=== PATIENT | female | born 1980 | race Caucasian/White ===

== ENCOUNTER 2019-01-21 16:03 | Emergency (ER) | payer OTHER ==
[2019-01-21] MEDS ORDERED: 0.9 % SODIUM CHLORIDE 1,000 ML BAG IV ONE (16:21)
[2019-01-21] MEDS ORDERED: ONDANSETRON HCL IV 4 MG/2 ML VIAL IVP ONE (16:21)
--- NOTE | 2019-01-21 16:28 | Emergency Department Record ---
History of Present Illness - General Chief Complaint: Dizziness Stated Complaint: DIZZY Time Seen by Provider: 01/21/19 16:17 Source: Patient Mode of Arrival: Ambulatory Limitations: No limitations - History of Present Illness Initial Comments: The patient is here due to a 15 hour hx of lightheadedness. She states she was at work this early AM and suddenly began having waves of weakness, lightheadedness and nausea. The severe symptoms last minutes and then if she is able to lay back she feels better. The waves seem to be coming on every 30-45 minutes. She denies any hx of the same and any hx of any recent illness. Specifically she has had no fever, BENTLEY, CP, SOB, AP, dysuria, vomiting or diarrhea. The patient did drive herself here to the ER without difficulty. MD Complaint: Lightheadedness Onset/Timin -: Hour(s) Description: Lightheadedness, Nausea, Sense of movement (mildly.) History of Same: No History of Trauma: No Improves With: Nothing Worsens With: Nothing Associated Symptoms: Denies other symptoms - Roel Coma Scale Eye Response: (4) Open spontaneously Motor Response: (6) Obeys commands Verbal Response: (5) Oriented [place] Total: 15 - Related Data Allergies Allergy/AdvReac Type Severity Reaction Status Date / Time codeine Allergy "childhood" Verified 01/21/19 16:30 Travel Screening - Travel/Exposure Within Last 30 Days Have you traveled within the last 30 days?: No Review of Systems Constitutional: Reports: Malaise. Denies: Chills, Fever Eyes: Denies: Eye discharge ENT: Denies: Congestion Respiratory: Denies: Cough, Dyspnea Cardiovascular: Denies: Chest pain, Dyspnea on exertion Endocrine: Reports: Fatigue Gastrointestinal: Reports: Nausea Genitourinary: Denies: Dysuria Musculoskeletal: Denies: Arthralgia Skin: Denies: Bruising Past Medical History - SOCIAL HISTORY Smoking Status: Never smoker Alcohol Use: Occasional Drug Use: None - RESPIRATORY Hx Respiratory Disorders: No Comment:: seasonal allergies - CARDIOVASCULAR Hx Cardio Disorders: No - NEURO Hx Neuro Disorders: No - GI Hx GI Disorders: No - Hx Genitourinary Disorders: No - ENDOCRINE Hx Endocrine Disorders: No - MUSCULOSKELETAL Hx Musculoskeletal Disorders: No - PSYCH Hx Psych Problems: Yes Hx Anxiety: Yes Hx Depression: Yes - HEMATOLOGY/ONCOLOGY Hx Hematology/Oncology Disorders: No Family Medical History Any Significant Family History?: Yes Hx Heart Disease: Father Hx Stroke: Father Physical Exam - General General Appearance: Alert, Oriented x3, Cooperative, No acute distress (The patient is very clam and cooperative and nontoxic.) - Head Head exam: Atraumatic, Normocephalic, Normal inspection - Eye Eye exam: Normal appearance, PERRL, EOMI. negative: Conjunctival injection, Nystagmus - ENT Throat exam: Normal inspection. negative: Tonsillar erythema, Tonsillar exudate - Neck Neck exam: Normal inspection, Full ROM. negative: Meningismus (The neck is very supple.), Tenderness - Respiratory Respiratory exam: Normal lung sounds bilaterally. negative: Respiratory distress - Cardiovascular Cardiovascular Exam: Regular rate, Normal rhythm, Normal heart sounds. negative: Diastolic murmur, Systolic murmur - GI/Abdominal GI/Abdominal exam: Soft, Normal bowel sounds. negative: Tenderness - Extremities Extremities exam: Normal inspection, Full ROM, Normal capillary refill. negative: Tenderness - Neurological Neurological exam: Alert, CN II-XII intact, Normal gait, Oriented X3, Other (Neg Drift and Rhomberg.). negative: Abnormal gait, Altered, Motor sensory deficit - Psychiatric Psychiatric exam: negative: Anxious - Skin Skin exam: negative: Rash Course Vital Signs 01/21/19 16:08 Temperature 98.7 F Pulse Rate 69 Respiratory 18 Rate Blood Pressure 124/91 Pulse Ox 100 - Reevaluation(s) Reevaluation #1: The patient is doing slightly better at this time but is having the lightheadedness and very mild nausea with standing. She does feel a mild sense of motion with standing and walking but she denies any BENTLEY, neck pain, CP, SOB, AP, difficulty swallowing, speech issues, or balance problems. Her gait is steady and she again has a neg Rhomberg and Drift exams. The patient's repeat temp is 98.5 and she would like to go home to rest. She is to see her PCP if not better and return to the ER for any worsening symptoms. I also did discuss the patient's lab results and the need for recheck of her platelets. 01/21/19 17:33 Medical Decision Making - Data Complexity MDM Data: EKG Ordered and/or Reviewed - Lab Data Result diagrams: 01/21/19 16:10 01/21/19 16:10 - EKG Data -: EKG Interpreted by Me EKG: No Acute Changes, Normal EKG Disposition Disposition: Discharge Clinical Impression: Lightheadedness Disposition: Home, Self-Care Condition: (2) Stable Instructions: Dizziness (ED) Additional Instructions: Please rest at home and take tonight off work. Use your home dizziness medicines as needed. Return to the ER for any worsening symptoms, any pain, fever, or weakness. Forms: Patient Portal Access Time of Disposition: 17:36 Quality - Quality Measures Quality Measures: N/A - Blood Pressure Screening View Details: Yes Does Patient Have Any of the Following: No Blood Pressure Classification: Hypertensive Reading Systolic Measurement: 124 Diastolic Measurement: 91 Screening for High Blood Pressure: < First Hypertensive BP, F/U Documented > [[id number]] First Hypertensive Follow-up Interventions: Referral to alternative/primary care provider.
[2019-01-21 16:35] LABS: ABSOLUTE NEUTROPHIL COUNT 4.21; BASO % 0.4 % (0-6); GRAN % 55.5 % (47-80); HEMATOCRIT 43.7 % (35.0-47.0); HEMOGLOBIN 14.5 gm/dl (11.6-16.0); LYMPH % 31.7 % (16-45); MEAN CELL VOLUME 88.1 fl (81-97); MEAN CORPUSCULAR HEMOGLOBIN 29.2 pg (27-33); MEAN CORPUSCULAR HGB CONC 33.2 g/dl (32-36); MEAN PLATELET VOLUME 8.2 fl (7.4-10.4); MONO % 8.4 % (0-9); PLATELET COUNT 499 K/uL (130-400); RED BLOOD COUNT 4.96 M/uL (3.80-5.40); RED CELL DISTRIBUTION WIDTH 13.4 % (11.5-14.5); WHITE BLOOD COUNT W/O DIFF 7.6 K/uL (4.2-12.2)
[2019-01-21 16:45] LABS: BLOOD UREA NITROGEN 12 mg/dL (6-20); CREATININE 0.7 mg/dL (0.5-0.9); EST GLOMERULAR FILTRATION RATE > 60 mL/min; TOTAL PROTEIN 7.4 g/dL (6.6-8.7)
[2019-01-21 16:47] LABS: GLUCOSE,RANDOM 93 mg/dL (74-109)
[2019-01-21 16:50] LABS: ALB/GLOB RATIO 1.6 (1.1-1.8); ALBUMIN 4.5 g/dL (4.0-5.0); ALKALINE PHOSPHATASE 65 U/L (35-104); ALT/SGPT 13 U/L (<33); AST/SGOT 14 U/L (10.0-35.0)
[2019-01-21 17:01] LABS: THYROID STIMULATING HORMONE 1.67 uIU/mL (0.270-4.20)
== END 2019-01-21 17:47 | disposition home or self-care (01) ==
LOC: ER 16:03
DX: R42 Dizziness and giddiness (principal); R11.0 Nausea
CPT/HCPCS: 80053; 84443; 84703; 85025; 93005; 93010; 96361; 96374; 99284; J2405; J7030